=== PATIENT | female | born 1950 | race Caucasian/White ===

== ENCOUNTER 2017-02-15 10:03 | Emergency (ER) | payer BC ==
--- NOTE | 2017-02-15 10:44 | ER PHYSICIAN DOCUMENTATION ---
Physician Documentation Name:Nancy Powers Age:66 yrs Sex:Female :1950 Arrival Date:02/15/2017 Time:10:03 Bed5 Private MD: David House Disposition: 02/15/17 10:34 Discharged to Home/Self Care. Impression: Rash. - Condition is Good. - Discharge Instructions: Rash, Skin - ERYTHEMA. - Medical Reconciliation form form. - Follow up: Sapphire Zabala MD; When: 4- 6 days; Reason: Recheck today's complaints, Continuance of care. - Problem is an ongoing problem. - Symptoms are unchanged. HPI: 02/15 10:12 This 66 yrs old Female presents to ER with complaints of Rash - STOMACH. tl1 10:12 . She presents with a number of rashes that she has had for up to a month. 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 All was well a week ago at her f/u appointment. At that time she had a subtle small, approx 1 X 1,5 cm pink itchy rash on her right upper abdomen. Scrapings were done and non diagnostic. Wood Patternmaker recommended hydrocortisone. This persists....... She also complains of a different small red patch, about 2 x 1.5 cm in the left upper abdomen with a pale irregular depressed area inferiorly. In addition, she had small bumps between her eye brows, and a small bump near her upper right hairline.. In addition she has some small, roughly 4-6 mm diameter slightly indented very pale lesions with irregular borders of unclear duration, on her legs and feet bilaterally.. Historical: - Allergies: No known drug Allergies; - Home Meds: 1. Humalog Sub-Q 2. Lantus sub-q 3. Metformin Oral 4. losartan-hydrochlorothiazide oral 5. Atenolol Oral - PMHx: Diabetes - IDDM; - PSHx: None; - Ebola Screening: : Patient negative for fever greater than or equal to 101.5 degrees Fahrenheit, and additional compatible Ebola Virus Disease symptoms. Patient denies exposure to infectious person. Patient denies travel to an Ebola-affected area in the 21 days before illness onset. No symptoms or risks identified at this time. . - Social history: Smoking status: Patient states was never smoker of tobacco. Patient/guardian denies using alcohol, street drugs, IV drugs, marijuana. - Immunization history: Flu Vaccine < 1 year. ROS: 10:12 Skin: Positive for lesions. tl1 10:12 All other systems are negative. Exam: 10:12 Constitutional: This is a well developed, well nourished patient who is awake, alert, tl1 and in no acute distress. 10:12 Head/Face: Normocephalic, atraumatic. tl1 10:12 Cardiovascular: Rate: normal. 10:12 Respiratory: Respirations: normal. 10:12 Skin: Lesions as described in the HPI.. Vital Signs: 10:19 Pulse Ox 91% ; sc1 10:19 Pulse 85; Resp 16; Temp 98.2(O); sc1 10:20 BP 177 / 71 (auto/); sc1 MDM: 10:12 Patient medically screened. tl1 12:49 Differential diagnosis: Strange skin lesions of uncertain significance and etiology. tl1 Data reviewed: vital signs, nurses notes, and as a result, I will discharge patient. Special discussion: Advised seeing a sales order clerk ; either Dr Zabala, in clinic 5 days from now up here in , or in [place] when she heads down there next week.. Dispensed Medications: No medications were administered Signatures: Bita Hooks, RN RN sc1 David Mejia MD MD tl1
--- NOTE | 2017-02-15 10:44 | ER NURSING DOCUMENTATION ---
Nurse's Notes [facility] Name:Nancy Powers Age:66 yrs Sex:Female :1950 Arrival Date:02/15/2017 Time:10:03 Bed5 Private MD: Diagnosis:Rash Presentation: 02/15 10:31 Presenting complaint: Patient states: Round reddened area on left abdomen for 3 weeks. sc1 Has seen a doctor at home for this but it's not any better. Transition of care: Home. Onset: The symptoms/episode began/occurred gradually, 3 day(s) ago. Anaphylaxis evaluation, the patient reports or I have noted the following symptoms which indicate a significant risk of anaphylaxis: urticaria. 10:31 Acuity: [facility] 4 [facility] – [place] 10:31 Method Of Arrival: Private Vehicle [facility] [place] Triage Assessment: 10:32 General: Appears in no apparent distress, well developed, well nourished, well groomed, ga1 Behavior is cooperative, pleasant. Pain: Denies pain. Historical: - Allergies: No known drug Allergies; - Home Meds: 1. Humalog Sub-Q 2. Lantus sub-q 3. Metformin Oral 4. losartan-hydrochlorothiazide oral 5. Atenolol Oral - PMHx: Diabetes - IDDM; - PSHx: None; - Ebola Screening: : Patient negative for fever greater than or equal to 101.5 degrees Fahrenheit, and additional compatible Ebola Virus Disease symptoms. Patient denies exposure to infectious person. Patient denies travel to an Ebola-affected area in the 21 days before illness onset. No symptoms or risks identified at this time. . - Social history: Smoking status: Patient states was never smoker of tobacco. Patient/guardian denies using alcohol, street drugs, IV drugs, marijuana. - Immunization history: Flu Vaccine < 1 year. Screenin:36 Infectious Disease Risk None. Abuse screen: Denies threats or abuse. Nutritional ga1 screening: No deficits noted. Vital Signs: 10:19 Pulse Ox 91% ; sc1 10:19 Pulse 85; Resp 16; Temp 98.2(O); sc1 10:20 BP 177 / 71 (auto/); sc1 ED Course: 10:06 Patient arrived in ED. ama 10:12 David Mejia MD is Attending Physician. tl1 10:31 Hooks, Bita, RN is Primary Nurse. sc1 10:32 Triage completed. sc1 10:33 Notified ED Physician of patient's arrival and chief complaint. Dr. Mejia notified. Arm sc1 band placed on Bed in low position Call Light in Reach Gowned HOB Elevated. 10:34 Sapphire Zabala MD is Referral Physician. tl1 Administered Medications: No medications were administered Outcome: 10:34 Discharge ordered by MD. tl1 10:42 Discharged to home ambulatory. sc1 10:42 Condition: stable 10:42 Discharge instructions given to patient, Instructed on discharge instructions, follow up and referral plans. Demonstrated understanding of instructions. 10:43 Patient left the ED. sc1 07 14:01 Discharge F/U Call: Spoke with: patient. other: Name: pt states she can't see the dermatologies because they have no openings in the three days she is here. pt was told that there are other dermatologists pt states she can't take the time to [facility]. it was suggested that she let the youth development professional know to let her know if there are any cancellations and to see a youth development professional when she gets home a few months and to return Signatures: Jade Meeks, Bita Mcdonnell RN, JIMENEZ RN sc1 Max Valdovinos, David Menendez MD MD tl1
== END 2017-02-15 10:44 | disposition home or self-care (01) ==
LOC: ER 10:03
DX: R21 Rash and other nonspecific skin eruption (principal); E11.9 Type 2 diabetes mellitus without complications; Z79.899 Other long term (current) drug therapy; Z79.4 Long term (current) use of insulin; Z85.828 Personal history of other malignant neoplasm of skin
CPT/HCPCS: 99281